=== PATIENT | female | born 1940 ===

== ENCOUNTER 2019-02-04 07:09 | Day surgery (SDC) | payer MEDICARE ==
[2019-02-04] MEDS ORDERED: Propofol* 10 MG/ML 20 ML BTL ONE (08:58)
[2019-02-04] MEDS ORDERED: Lidocaine 2% PF * 5 ML VIAL ONE (08:58)
[2019-02-04] MEDS ORDERED: Lidocaine 2% w/ EPI 1:200,000* 20 ML SDV VIAL ONE (11:21)
[2019-02-04] MEDS ORDERED: Phenylephrine OPHTH SOL 2.5%* 2 ML ONE (11:21)
[2019-02-04] MEDS ORDERED: Ketorolac 0.5% OPHTH (NF) 0.5 % 5 ML BTL ONE (11:21)
[2019-02-04] MEDS ORDERED: Povidone Iodine 5% OPTH* 30 ML BTL ONE (11:21)
[2019-02-04] MEDS ORDERED: acetaZOLAMIDE TAB* 250 MG ONE (11:21)
[2019-02-04] MEDS ORDERED: Neomycin/Polymy/Dex OPTH.SUSP* MAXITROL 0.1% 5 ML ONE (11:21)
[2019-02-04] MEDS ORDERED: Proparacaine 0.5% OPHTH.SOL* 15 ML BTL ONE (11:21)
[2019-02-04] MEDS ORDERED: Lidocaine 1% MPF ** 5 ML VIAL ONE (11:21)
[2019-02-04] MEDS ORDERED: Cyclopentolate 1% OPTH.SOL* 2 ML BTL ONE (11:21)
[2019-02-04 11:22] VITALS: BP 137/54
--- NOTE | 2019-02-04 21:37 | OP ---
DATE OF OPERATION: 02/04/19 [facility] DATE OF : 38 SURGEON: Lake Flores M.D. PREOPERATIVE DIAGNOSIS: Cataract left eye. POSTOPERATIVE DIAGNOSIS: Cataract left eye. OPERATIVE PROCEDURE: Extracapsular cataract extraction with intraocular lens implant left eye. DESCRIPTION OF PROCEDURE: The patient was brought to the operating room after being given 1/2% Alcaine with epinephrine drops in the preoperative area. The eye was prepped and draped in the usual sterile fashion. Sterile drape and eyelid speculum were placed. Again, topical 1/2% Alcaine with epinephrine was given. A paracentesis incision was made at the 3 o'clock position with the No.75 blade. Clear cornea incision 2.2 x 2.2-mm was created at the 6 o'clock position starting at the anterior limbus using the 2.2-mm keratome. The anterior chamber was irrigated with 0.4 mL of 1% non-preservative intracameral lidocaine and filled with DisCoVisc. A capsulorrhexis was completed using the cystotome and the Utrata forceps. Hydrodissection was performed with balanced salt solution. The lens nucleus was removed with the Phacoemulsification handpiece without incident. Cortex was removed with the irrigation-aspiration handpiece. The capsular bag was re-inflated using DisCoVisc and an [id number] implant was inserted with the shooter. The irrigation-aspiration handpiece was used to remove all residual DisCoVisc. The eye was refilled with balanced salt solution and the wound checked and found to be watertight. Topical Maxitrol drops were given. [id number]/[facility] #: [id number] [facility]
== END 2019-02-04 11:12 | disposition home or self-care (01) ==
LOC: OREAST 07:09
PROVIDERS: ATTEND Specialist
DX: H25.812 Combined forms of age-related cataract, left eye (principal); H04.123 Dry eye syndrome of bilateral lacrimal glands; I10 Essential (primary) hypertension; K21.9 Gastro-esophageal reflux disease without esophagitis; E78.00 Pure hypercholesterolemia, unspecified
CPT/HCPCS: A9270-GY; J2704; V2632

== ENCOUNTER 2019-02-11 06:48 | Day surgery (SDC) | payer MEDICARE ==
[~2019-02-11 06:48] MED LIST: Buffered Lidocaine 1% SYRIN* 1 ML/SYRINGE INTRADERM ONE
[2019-02-11] MEDS ORDERED: Propofol* 10 MG/ML 20 ML BTL ONE (08:08)
[2019-02-11] MEDS ORDERED: Lidocaine 2% PF * 5 ML VIAL ONE (08:08)
[2019-02-11 09:39] VITALS: BP 100/55
[2019-02-11] MEDS ORDERED: Proparacaine 0.5% OPHTH.SOL* 15 ML BTL ONE (11:03)
[2019-02-11] MEDS ORDERED: Cyclopentolate 1% OPTH.SOL* 2 ML BTL ONE (11:03)
[2019-02-11] MEDS ORDERED: Lidocaine 2% w/ EPI 1:200,000* 20 ML SDV VIAL ONE (11:03)
[2019-02-11] MEDS ORDERED: acetaZOLAMIDE TAB* 250 MG ONE (11:03)
[2019-02-11] MEDS ORDERED: Povidone Iodine 5% OPTH* 30 ML BTL ONE (11:03)
[2019-02-11] MEDS ORDERED: Lidocaine 1% MPF ** 5 ML VIAL ONE (11:03)
[2019-02-11] MEDS ORDERED: Phenylephrine OPHTH SOL 2.5%* 2 ML ONE (11:03)
[2019-02-11] MEDS ORDERED: Neomycin/Polymy/Dex OPTH.SUSP* MAXITROL 0.1% 5 ML ONE (11:03)
[2019-02-11] MEDS ORDERED: Ketorolac 0.5% OPHTH (NF) 0.5 % 5 ML BTL ONE (11:03)
--- NOTE | 2019-02-11 14:46 | OP ---
DATE OF OPERATION: 02/11/19 - [facility] DATE OF : 38 SURGEON: Lake Flores M.D. PREOPERATIVE DIAGNOSIS: Cataract, right eye. POSTOPERATIVE DIAGNOSIS: Cataract, right eye. OPERATIVE PROCEDURE: Extracapsular cataract extraction with IOL, right eye. DESCRIPTION OF PROCEDURE: The patient was brought to the operating room after being given 1/2% Alcaine with epinephrine drops in the preoperative area. The eye was prepped and draped in the usual sterile fashion. Sterile drape and eyelid speculum were placed. Again, topical 1/2% Alcaine with epinephrine was given. A paracentesis incision was made at the 9 o'clock position with the No.75 blade. Clear cornea incision 2.2 x 2.2-mm was created at the 12 o'clock position starting at the anterior limbus using the 2.2-mm keratome. The anterior chamber was irrigated with 0.4 mL of 1% non-preservative intracameral lidocaine and filled with DisCoVisc. A capsulorrhexis was completed using the cystotome and the Utrata forceps. Hydrodissection was performed with balanced salt solution. The lens nucleus was removed with the Phacoemulsification handpiece without incident. Cortex was removed with the irrigation-aspiration handpiece. The capsular bag was re-inflated using DisCoVisc and an SN60WF 26.5 implant was inserted with the shooter. The pupil was small, so a Malyugin ring was used to keep the iris larger prior to capsulorrhexis and removed after insertion of the lens. The irrigation-aspiration handpiece was used to remove all residual DisCoVisc. The eye was refilled with balanced salt solution and the wound checked and found to be watertight. Topical Maxitrol drops were given. Indication for complex cataract surgery: Pupils abnormalities requiring pupil dilation device. [id number]/[facility] #: [id number] [facility]DLee
== END 2019-02-11 09:23 | disposition home or self-care (01) ==
LOC: OREAST 06:48
PROVIDERS: ATTEND Specialist
DX: H25.811 Combined forms of age-related cataract, right eye (principal); H21.561 Pupillary abnormality, right eye; H04.123 Dry eye syndrome of bilateral lacrimal glands; I10 Essential (primary) hypertension; K21.9 Gastro-esophageal reflux disease without esophagitis; E78.00 Pure hypercholesterolemia, unspecified; I69.311 Memory deficit following cerebral infarction; E78.5 Hyperlipidemia, unspecified
CPT/HCPCS: A9270-GY; J2704; V2632